=== PATIENT | male | born 2000 | race Caucasian/White ===

== ENCOUNTER 2023-06-15 02:16 | Inpatient (IN) | payer OTHER ==
[2023-06-15 03:47] VITALS: BMI 30.8
[2023-06-15] MEDS: Morphine 4 MG/ML VIAL SLOW IVP PRN ×2 (03:59→08:26)
[2023-06-15] MEDS: Sodium Chloride 0.9% 1,000 ML IV SCH ×2 (04:03→14:44)
[2023-06-15] MEDS ORDERED: Ondansetron PF 4 MG/2 ML Vial IVP PRN (10:06)
[2023-06-15] MEDS ORDERED: Morphine 2 MG/ML VIAL SLOW IVP SCH (11:15)
[2023-06-15] MEDS ORDERED: HYDROmorphone 0.5 MG/0.5 ML SYRINGE SLOW IVP SCH (12:00)
[2023-06-15] MEDS ORDERED: Lactated Ringer's 1,000 ML IV SCH (12:00)
[2023-06-15] MEDS ORDERED: Piperacillin/Tazobactam 3.375 GM in Sodium Chloride 0.9% 100 ML IVPB SCH ×2 (12:00→18:00)
[2023-06-15] MEDS ORDERED: Metoclopramide HCl 10 MG/2 ML VIAL IVP SCH (12:15)
[2023-06-15] MEDS ORDERED: PROPOFOL 20 ML ONE ×2 (12:38→14:52)
[2023-06-15] MEDS ORDERED: Dexamethasone 4 mg/ml Vial ONE (13:51)
[2023-06-15] MEDS ORDERED: Ondansetron PF 4 MG/2 ML Vial ONE ×2 (13:51→14:22)
[2023-06-15] MEDS ORDERED: Rocuronium Bromide 10 MG/ML (10ML VIAL) ONE ×2 (13:51→14:22)
[2023-06-15] MEDS ORDERED: Ketorolac Tromethamine 30 MG/ML VIAL ONE ×2 (13:51→14:22)
[2023-06-15] MEDS ORDERED: Dexamethasone 20 MG/5 ML VIAL ONE (14:22)
[2023-06-15] MEDS ORDERED: PROPOFOL 200 MG/20 ML VIAL ONE (14:22)
[2023-06-15] MEDS ORDERED: SUGAMMADEX SODIUM 200 MG/2 ML VIAL ONE (14:47)
[2023-06-15] MEDS ORDERED: HYDROcodone/Acetaminophen 5/325 mg Tablet PO PRN (15:02)
[2023-06-15] MEDS ORDERED: Promethazine HCl 25 MG/ML VIAL IM PRN (15:06)
[2023-06-15] MEDS ORDERED: Ondansetron HCl/PF 4 MG/2 ML Vial IVP PRN (15:06)
[2023-06-15 18:44] VITALS: BP 128/70; TEMP 98.5
== END 2023-06-15 17:57 | disposition home or self-care (01) | DRG 399 ==
LOC: SJJU 03:19 → OBSVTOIN 11:53
PROVIDERS: ADMIT Surgery; ATTEND Surgery
PROC: 0DTJ4ZZ Resection of Appendix, Percutaneous Endoscopic Approach (ICD-10-PCS; principal; 2023-06-15)
DX: K35.30 Acute appendicitis with localized peritonitis, without perforation or gangrene (principal)
CPT/HCPCS: 88304; A4649; J1100; J1170; J1885; J2270; J2272; J2405; J2543; J2704; J2765; J3490; J7050; J7120